=== PATIENT | male | born 1980 | race Caucasian/White ===

== ENCOUNTER 2016-11-26 02:50 | Emergency (ER) | payer MEDICAID, OTHER ==
[~2016-11-26] VITALS: Ht 177.8 cm; Wt 77.1 kg
[2016-11-26] MEDS ORDERED: MORPHINE SULFATE 4 MG/ML SYRG IV ONE (03:00)
[2016-11-26] MEDS ORDERED: ONDANSETRON HCL 4 MG/2 ML VIAL IV ONE ×2 (03:00→06:00)
[2016-11-26] MEDS ORDERED: HYDROmorphone HCL 2 MG/ML VL IV ONE ×4 (03:15→07:00)
[2016-11-26] MEDS ORDERED: HYDROmorphone HCL 2 MG/ML VL ONE (04:17)
[2016-11-26] MEDS ORDERED: NEOMYCIN-BACITRACIN-POLYM UNITDOSE PKG TOP OINT TOP ONE ×2 (05:00→05:21)
[2016-11-26] MEDS ORDERED: SODIUM CHLORIDE 0.9% 1,000 ML IV ONE (05:45)
[2016-11-26] MEDS ORDERED: LORazepam 2MG/ML-1ML VIAL IV ONE (06:00)
[2016-11-26 09:30] VITALS: BP 122/84
== END 2016-11-26 09:46 | disposition short-term general hospital (02) ==
LOC: ER 02:50
DX: S72.141A Displaced intertrochanteric fracture of right femur, initial encounter for closed fracture (principal); S72.001A Fracture of unspecified part of neck of right femur, initial encounter for closed fracture; S01.01XA Laceration without foreign body of scalp, initial encounter; S91.302A Unspecified open wound, left foot, initial encounter; S00.93XA Contusion of unspecified part of head, initial encounter; S90.32XA Contusion of left foot, initial encounter; S80.01XA Contusion of right knee, initial encounter; J93.9 Pneumothorax, unspecified; V86.59XA Driver of other special all-terrain or other off-road motor vehicle injured in nontraffic accident, initial encounter; Y93.89 Activity, other specified; Y99.8 Other external cause status; Y92.89 Other specified places as the place of occurrence of the external cause
CPT/HCPCS: 12004; 70450; 71250; 72125; 73502; 73560; 74176; 93971; 96361; 96374; 96375; 96376; 99285; J1170; J2060; J2270; J2405; J7030